=== PATIENT | male | born 1990 | race Two or more races ===

== ENCOUNTER 2021-06-26 03:01 | Emergency (ER) | payer OTHER ==
[~2021-06-26] VITALS: Ht 182.9 cm; Wt 98.0 kg
[2021-06-26 03:12] VITALS: BP 159/105
[2021-06-26] MEDS ORDERED: ACETAMINOPHEN 325MG TABLET PO ONE (04:45)
[2021-06-26] MEDS ORDERED: IBUPROFEN 600MG TABLET PO STA (04:59)
[2021-06-26] MEDS ORDERED: TRAM50TA PO (06:40)
[2021-06-26] MEDS ORDERED: IBUP-2029 PO (06:40)
== END 2021-06-26 07:15 | disposition home or self-care (01) ==
LOC: ER 03:01
DX: S43.101A Unspecified dislocation of right acromioclavicular joint, initial encounter (principal); S42.001A Fracture of unspecified part of right clavicle, initial encounter for closed fracture; Z90.49 Acquired absence of other specified parts of digestive tract; Y04.0XXA Assault by unarmed brawl or fight, initial encounter; Y93.89 Activity, other specified; Y92.89 Other specified places as the place of occurrence of the external cause; Y99.8 Other external cause status
CPT/HCPCS: 71045; 71100; 73030; 99284